=== PATIENT | female | born 1995 | race African-American/Black ===

== ENCOUNTER 2018-09-25 02:31 | Emergency (ER) | payer MEDICAID ==
[~2018-09-25] VITALS: Ht 165.1 cm; Wt 52.2 kg
[2018-09-25] MEDS ORDERED: ONDANSETRON ODT 4 MG TAB.RAPDIS SL ONE (03:15)
--- NOTE | 2018-09-25 03:15 | NUR ---
Dr. Nieves at bedside for MSE.
[2018-09-25] MEDS ORDERED: ONDANSETRON ODT 4 MG TAB.RAPDIS ONE (03:23)
[2018-09-25] MEDS ORDERED: IV NORMAL SALINE 1000 ML BAG IV ONE (03:30)
[2018-09-25] MEDS ORDERED: ONDANSETRON 4 MG/2 ML VIAL IV ONE (03:30)
[2018-09-25] MEDS ORDERED: ONDANSETRON 4 MG/2 ML VIAL ONE (03:30)
--- NOTE | 2018-09-25 03:30 | NUR ---
Ultrasound at bedside.
[2018-09-25 03:32] LABS: BASOPHILS % (AUTO) 0.3 % (0.0-2.0); EOSINOPHILS % (AUTO) 0.3 % (0.0-7.0); HEMATOCRIT 37.1 % (31.2-41.9); HEMOGLOBIN 12.6 g/dL (10.9-14.3); LYMPHOCYTES # (AUTO) 1.5 K/uL (20.0-40.0); LYMPHOCYTES % (AUTO) 19.8 % (20.5-51.5); MEAN CORPUSCULAR HEMOGLOBIN 27.4 uug (24.7-32.8); MEAN CORPUSCULAR HGB CONC 34 g/dL (32.3-35.6); MEAN CORPUSCULAR VOLUME 81.1 fL (75.5-95.3); MONOCYTES # (AUTO) 0.2 K/uL (2.0-10.0); MONOCYTES % (AUTO) 3.2 % (0.0-11.0); NEUTROPHILS # (AUTO) 5.6 K/uL (1.8-8.9); NEUTROPHILS % (AUTO) 76.4 % (38.5-71.5); PLATELET COUNT (AUTO) 245 K/uL (179-408); RED BLOOD CELL COUNT(AUTO) 4.58 MIL/uL (3.63-4.92); WHITE BLOOD COUNT (AUTO) 7.4 K/uL (3.8-11.8)
--- NOTE | 2018-09-25 03:47 | NUR ---
Pt c/o itching, redness on IV site, MD notified.
[2018-09-25] MEDS ORDERED: diphenhydrAMINE 50 MG/1 ML VIAL ONE (03:50)
[2018-09-25] MEDS ORDERED: diphenhydrAMINE 50 MG/1 ML VIAL IV ONE (04:00)
--- NOTE | 2018-09-25 04:01 | NUR ---
Pt provided urine sample, sent to lab.
[2018-09-25 04:13] LABS: *BILIRUBIN,URIN NEGATIVE (NEGATIVE); *BLOOD, URINE NEGATIVE (NEGATIVE); *CLARITY,URINE SLIGHTLY CLOUDY (CLEAR); *COLOR,URINE YELLOW (YELLOW); *KETONES,URINE NEGATIVE (NEGATIVE); *UROBILINOGEN,URINE 0.2 E.U./dl (NORMAL); LEUKOCYTE ESTERASE ,URINE TRACE (NEGATIVE); NITRITE, URINE NEGATIVE (NEGATIVE); UGLUCOSE NEGATIVE (NEGATIVE)
[2018-09-25 04:44] LABS: BACTERIA,URINE FEW /HPF (NONE SEEN); MUCUS,URINE MANY /LPF (0-FEW); RBC,URINE 0-3 /HPF (0-3); SQUAMOUS EPITHELIAL CELL,UR MANY /HPF (NONE SEEN)
--- NOTE | 2018-09-25 04:57 | NUR ---
Patient discharged to home in stable conditon. Written and verbal after care instructions given. Patient verbalizes understanding of instructions. Patient ambulated out of ER with steady gait, no acute signs of distress, VSS, all belongings taken, IV site discontinued.
[2018-09-25 05:05] VITALS: BP 103/73
== END 2018-09-25 05:05 | disposition home or self-care (01) ==
LOC: ER 02:36
DX: O20.0 Threatened abortion (principal); Z3A.01 Less than 8 weeks gestation of pregnancy; Z86.2 Personal history of diseases of the blood and blood-forming organs and certain disorders involving the immune mechanism
CPT/HCPCS: 36415; 76856; 81001; 84702; 85025; 96361; 96374; 99284; J2405; A4663; J1200; J7030; Q0162

== ENCOUNTER 2024-03-15 04:09 | Emergency (ER) | payer MEDICAID ==
[~2024-03-15] VITALS: Ht 165.1 cm; Wt 65.8 kg
[2024-03-15] MEDS: BENZONATATE 100 MG CAPSULE PO ONE (04:42)
[2024-03-15] MEDS ORDERED: IPRA42SP NS (04:49)
[2024-03-15] MEDS ORDERED: BENZ-13 PO (04:49)
[2024-03-15 04:56] VITALS: BP 115/69; TEMP 98.6; O2SAT 100
== END 2024-03-15 04:56 | disposition home or self-care (01) ==
LOC: ER 04:13
DX: J06.9 Acute upper respiratory infection, unspecified (principal); R05.9 Cough, unspecified; D64.9 Anemia, unspecified; Z79.899 Other long term (current) drug therapy
CPT/HCPCS: 71046; A4606; A4663

== ENCOUNTER 2024-11-13 01:00 | Emergency (ER) | payer MEDICAID ==
[~2024-11-13] VITALS: Ht 165.1 cm; Wt 63.5 kg
[~2024-11-13 01:00] MED LIST: BENZ-13 PO; IPRA42SP NS
[2024-11-13 01:29] VITALS: BP 106/65; O2SAT 98
== END 2024-11-13 01:16 | disposition home or self-care (01) ==
LOC: ER 01:04
DX: H92.02 Otalgia, left ear (principal)
CPT/HCPCS: A4606; A4663

== ENCOUNTER 2024-12-21 13:41 | Emergency (ER) | payer MEDICAID ==
[~2024-12-21] VITALS: Ht 165.1 cm; Wt 70.8 kg
[2024-12-21 13:43] VITALS: O2SAT 99
[2024-12-21] MEDS ORDERED: AMOX-430 PO (14:08)
== END 2024-12-21 14:13 | disposition home or self-care (01) ==
LOC: ER 13:44
DX: K04.7 Periapical abscess without sinus (principal)
CPT/HCPCS: A4606; A4663